=== PATIENT | female | born 1995 | race Caucasian/White ===

== ENCOUNTER 2018-10-08 17:11 | Emergency (ER) | payer BC, OTHER ==
[2018-10-08] MEDS ORDERED: Lidocaine 1% 30 ML SDV INJECT ONE (17:19)
[2018-10-08] MEDS ORDERED: Bacitracin Oint 1 GM U/D Packet TOP ONE (17:19)
--- NOTE | 2018-10-08 17:19 | EDM.PDOC ---
ED HPI GENERAL MEDICAL PROBLEM - General Chief Complaint: Laceration Stated Complaint: FELL PLAYING BASKETBALL Time Seen by Provider: 10/08/18 17:19 Source of Information: Reports: Patient, RN, RN Notes Reviewed History Limitations: Reports: No Limitations - History of Present Illness INITIAL COMMENTS - FREE TEXT/NARRATIVE: Pt presents to ER with c/o laceration to left eyebrow sustained just [employer] when pt fell playing basketball. She denies LOC or neck pain. Pt states Tetanus vaccine is <5 yrs ago. Denies any other injury. Onset: Today Location: Reports: Head Quality: Reports: Ache Severity: Mild Improves with: Reports: None Worsens with: Reports: None Associated Symptoms: Reports: No Other Symptoms Left Pain Score (Numeric/FACES): 3 - Related Data Allergies Allergy/AdvReac Type Severity Reaction Status Date / Time No Known Allergies Allergy Verified 10/08/18 17:19 Home Meds: Home Meds . [No Known Home Meds] 10/08/18 [History] Past Medical History - Past Health History Medical/Surgical History: Denies Medical/Surgical History [employer] History: Reports: Social & Family History - Family History Family Medical History: Noncontributory - Living Situation & Occupation Living situation: Reports: ED ROS GENERAL - Review of Systems Review Of Systems: ROS reveals no pertinent complaints other than HPI. ED EXAM, SKIN/RASH Exam: See Below Exam Limited By: No Limitations General Appearance: Alert, WD/WN, No Apparent Distress Eye Exam: Bilateral Eye: Normal Inspection Ears: Normal External Exam Nose: Normal Inspection Throat/Mouth: Normal Inspection Head: Normocephalic, Other (3cm linear laceration at left eyebrow to depth of subcutaneous tissue, no active bleeding, no FB) Neck: Normal Inspection Respiratory/Chest: No Respiratory Distress Neurological: Alert, Oriented, CN II-XII Intact Psychiatric: Normal Mood ED SKIN PROCEDURES - Laceration/Wound Repair Left Lateral Face Lac/Wound length In cm: 3 Appearance: Subcutaneous, Linear, Clean Distal NVT: Neuro & Vascular Intact, No Tendon Injury Anesthetic Type: Local Local Anesthesia - Lidocaine (Xylocaine): 1% Plain Local Anesthetic Volume: 5cc Skin Prep: Chlorhexidine (Hibiciens), Saline, Sterile Drape Saline Irrigation (cc's): 60 Exploration/Debridement/Repair: Wound Explored, In a Bloodless Field, Explored to Base, Minimal Debridement, Minimally Undermined Closed with: Sutures Suture Size: 4-0 # of Sutures: 9 Suture Type: Nylon, Interrupted Sterile Dressing Applied: None Tetanus Status Addressed: Yes Complications: No Course - Vital Signs Last Recorded V/S: Last Vital Signs Temp 36.6 C 10/08/18 17:19 Pulse 102 H 10/08/18 17:19 Resp 14 10/08/18 17:19 BP 144/71 H 10/08/18 17:19 Pulse Ox 97 10/08/18 17:19 - Orders/Labs/Meds Meds: Medications Discontinued Medications Generic Name Dose Route Start Last Admin Trade Name Freq PRN Reason Stop Dose Admin Bacitracin 1 dose 10/08/18 17:19 10/08/18 17:23 Bacitracin Oint 1 Gm TOP 10/08/18 17:20 1 dose ONETIME ONE Administration Lidocaine HCl 30 ml 10/08/18 17:19 10/08/18 17:23 Xylocaine-Mpf 1% INJECT 10/08/18 17:20 30 ml ONETIME ONE Administration Departure - Departure Time of Disposition: 18:12 Disposition: Home, Self-Care 01 Condition: Good Clinical Impression: Laceration of left eyebrow without complication Qualifiers: Encounter type: initial encounter Qualified Code(s): S01.112A - Laceration without foreign body of left eyelid and periocular area, initial encounter - Discharge Information *PRESCRIPTION DRUG MONITORING PROGRAM REVIEWED*: No *COPY OF PRESCRIPTION DRUG MONITORING REPORT IN PATIENT CHAD: No Instructions: Facial Laceration Forms: ED Department Discharge Additional Instructions: Follow up in clinic for suture removal in 5 to 7 days.
== END 2018-10-08 18:26 | disposition home or self-care (01) ==
LOC: DL.ED 17:11
DX: S01.112A Laceration without foreign body of left eyelid and periocular area, initial encounter (principal); W19.XXXA Unspecified fall, initial encounter; Y93.67 Activity, basketball
CPT/HCPCS: 12002; 12013; 99282; J2001